=== PATIENT | female | born 1955 ===

== ENCOUNTER 2017-08-16 16:03 | Emergency (ER) | payer BC, OTHER ==
--- NOTE | 2017-08-16 16:42 | UC ---
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 ?: No Onset/Duration: Sudden Onset, Lasting Days - 1 Severity Initially: Moderate Severity Currently: Moderate Pain Intensity: 0 Associated Signs/Symptoms: Positive: Hearing Loss - Allergies/Home Medications Allergies/Adverse Reactions: Allergies Allergy/AdvReac Type Severity Reaction Status Date / Time No Known Allergies Allergy Verified 08/16/17 16:11 Home Medications: Home Medications Fluoxetine HCl [Prozac] 10 mg PO DAILY 08/16/17 [History Confirmed 08/16/17] PMH/Surg Hx/FS Hx/Imm Hx Previously Healthy: No Psychological History: Depression - Surgical History Surgical History: None - Family History Known Family History: Positive: None - Social History Occupation: Works From/At Home Lives: With Family Alcohol Use: Weekly Substance Use Type: Marijuana Substance Use Comment - Amount & Last Used: rarely Smoking Status (MU): Never Smoked Tobacco Review of Systems Constitutional: Negative - Limits labs revealed a throat culture done if she's had any troubles Skin: Negative Eyes: Negative ENT: Ear Ache - left Respiratory: Negative Cardiovascular: Negative Gastrointestinal: Negative Genitourinary: Negative Motor: Negative Neurovascular: Negative Musculoskeletal: Negative Neurological: Negative Psychological: Negative Is Patient Immunocompromised?: No All Other Systems Reviewed And Are Negative: Yes Physical Exam Triage Information Reviewed: Yes Appearance: Well-Appearing, No Pain Distress, Well-Nourished Vital Signs: Initial Vital Signs Temp 98.4 F 08/16/17 16:12 Pulse 60 08/16/17 16:12 Resp 18 08/16/17 16:12 BP 131/70 08/16/17 16:12 Pulse Ox 99 08/16/17 16:12 Vital Signs Reviewed: Yes Eye Exam: Normal Eyes: Positive: Conjunctiva Clear ENT Exam: Normal ENT: Positive: Normal ENT inspection, Hearing grossly normal, Pharynx normal, TMs normal - right, Uvula midline, Other - bollea---left. Negative: Nasal congestion, Tonsillar swelling, Trismus, Muffled voice, Hoarse voice, Dental tenderness, Sinus tenderness Dental Exam: Normal Neck exam: Normal Neck: Positive: Supple, Nontender, No Lymphadenopathy Respiratory Exam: Normal Respiratory: Positive: Chest non-tender, Lungs clear, Normal breath sounds, No respiratory distress, No accessory muscle use Cardiovascular Exam: Normal Cardiovascular: Positive: RRR, No Murmur, Pulses Normal, Brisk Capillary Refill Musculoskeletal Exam: Normal Musculoskeletal: Positive: Strength Intact, ROM Intact, No Edema Neurological Exam: Normal Neurological: Positive: Alert, Muscle Tone Normal Psychological Exam: Normal Skin Exam: Normal Ear Complaint Course/Dx - Course Course Of Treatment: Ciprodex eardrops Tylenol ibuprofen keep your bone dry. no Earplugs - Differential Dx/Diagnosis Provider Diagnoses: Left bolus myringitis Discharge - Sign-Out/Discharge Documenting (check all that apply): Discharge - Discharge Plan Condition: Stable Disposition: HOME Prescriptions: Ciproflox/Dexameth OTIC.SUSP* [Ciprodex Otic*] 4 drop .SEE ORDER BID 7 Days #1 bottle Ciprofloxacin/Hydrocortisone [Cipro Hc] 4 drop LEFT EAR BID 7 Days #1 bottle Patient Education Materials: Acetaminophen (By mouth), Ear Infection (ED) Referrals: Sara Otero MD [Primary Care Provider] - If Needed - Billing Disposition and Condition Condition: STABLE Disposition: HOME
== END 2017-08-16 16:37 | disposition home or self-care (01) ==
LOC: UCEAST 16:03
DX: H73.012 Bullous myringitis, left ear (principal); F32.9 Major depressive disorder, single episode, unspecified
CPT/HCPCS: 99202; G0463

== ENCOUNTER 2017-08-31 14:38 | Emergency (ER) | payer OTHER ==
[2017-08-31 14:50] VITALS: BP 139/78
--- NOTE | 2017-08-31 15:09 | UC ---
Respiratory Complaint HPI - HPI Summary HPI Summary: started 3-4 days ago with mild cough. this am awoke with gas and belching. feels abetter now but still has cough. dry copugh (clear or no phlegm) no fever or chills. 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 Negative: Fever, Chills, Wheezing , Hemoptysis, Dizziness, Nasal Congestion - Allergies/Home Medications Allergies/Adverse Reactions: Allergies Allergy/AdvReac Type Severity Reaction Status Date / Time No Known Allergies Allergy Verified 08/31/17 14:50 PMH/Surg Hx/FS Hx/Imm Hx Previously Healthy: Yes Psychological History: Depression - Surgical History Surgical History: None - Family History Known Family History: Positive: None - Social History Occupation: Employed Part-time Lives: With Family Alcohol Use: Occasionally Substance Use Type: Marijuana Substance Use Comment - Amount & Last Used: rarely Smoking Status (MU): Never Smoked Tobacco Review of Systems Constitutional: Negative Skin: Negative Respiratory: Cough Cardiovascular: Negative Gastrointestinal: Other - belching this am-resolved Genitourinary: Negative Motor: Negative Neurovascular: Negative Psychological: Negative All Other Systems Reviewed And Are Negative: Yes Physical Exam Triage Information Reviewed: Yes Appearance: Well-Appearing, No Pain Distress, Well-Nourished Vital Signs: Initial Vital Signs Temp 98.2 F 08/31/17 14:45 Pulse 74 08/31/17 14:45 Resp 18 08/31/17 14:45 BP 139/78 08/31/17 14:45 Pulse Ox 100 08/31/17 14:45 Vital Signs Reviewed: Yes Eye Exam: Normal ENT Exam: Normal ENT: Positive: Pharynx normal, TMs normal Neck exam: Normal Respiratory Exam: Normal Respiratory: Positive: Lungs clear Cardiovascular Exam: Normal Cardiovascular: Positive: RRR, No Murmur, Pulses Normal Musculoskeletal Exam: Normal Neurological Exam: Normal Psychological Exam: Normal Skin Exam: Normal UC Diagnostic Evaluation - Laboratory O2 Sat by Pulse Oximetry: 100 Respiratory Course/Dx - Differential Dx/Diagnosis Differential Diagnosis/HQI/PQRI: Bronchitis, Influenza, Lower Resp Infection, Sinusitis, Other - GERD Provider Diagnoses: Upper respiratory infection Discharge - Sign-Out/Discharge Documenting (check all that apply): Discharge - Discharge Plan Condition: Good Disposition: HOME Patient Education Materials: Upper Respiratory Infection (ED) Referrals: Sara Otero MD [Primary Care Provider] - 3 Days (if no better) Additional Instructions: drink plenty of fluids eat bland diet for 24-48 hours report to ER if symptoms worsen at anytime - Billing Disposition and Condition Condition: GOOD Disposition: HOME
== END 2017-08-31 15:23 | disposition home or self-care (01) ==
LOC: UCEAST 14:38
DX: J06.9 Acute upper respiratory infection, unspecified (principal); F32.9 Major depressive disorder, single episode, unspecified
CPT/HCPCS: 99211; G0463